=== PATIENT | male | born 1940 | race Caucasian/White ===

== ENCOUNTER 2021-05-06 04:16 | Emergency (ER) | payer MEDICARE, BC ==
--- NOTE | 2021-05-06 05:09 | EDM.PDOC ---
ED HPI GENERAL MEDICAL PROBLEM - General Chief Complaint: Chest Pain Stated Complaint: FAST HEART RATE Time Seen by Provider: 05/06/21 04:35 Source of Information: Reports: Patient, Family History Limitations: Reports: No Limitations - History of Present Illness INITIAL COMMENTS - FREE TEXT/NARRATIVE: 81-year-old male with a history of stent placements 10 years ago, recently had a cardiac evaluation after having some minimal chest discomfort while working out in the yard. They are setting up an angiogram in the near future, but tonight he got up to go to the bathroom and felt a little lightheaded and some palpitations which concerned him. He just did not feel right so he asked his to bring him in, he did not get short of breath or chest pain. On arrival to the emergency room he feels normal. Onset: Unknown/Unsure (Woke up with symptoms 1 hour ago) Duration: Minutes: (Symptoms lasted about 20 minutes) Associated Symptoms: Reports: Malaise, Weakness, Other (Lightheaded) - Related Data Allergies Allergy/AdvReac Type Severity Reaction Status Date / Time codeine Allergy Itching Verified 05/06/21 04:21 Home Meds: Home Meds Aspirin [Ecotrin EC] 1 tab PO DAILY 05/06/21 [History] Metoprolol Tartrate [Lopressor] 1 tab PO BID 05/06/21 [History] Rosuvastatin [Crestor] 1 tab PO DAILY 05/06/21 [History] Past Medical History HEENT History: Reports: Cataract Cardiovascular History: Reports: High Cholesterol, Hypertension, Stents Endocrine/Metabolic History: Reports: Other (See Below) Other Endocrine/Metabolic History: myasthenia gravis Oncologic (Cancer) History: Reports: Basal Cell Carcinoma - Infectious Disease History Infectious Disease History: Reports: Chicken Pox, Measles, Shingles - Past Surgical History HEENT Surgical History: Reports: Cataract Surgery GI Surgical History: Reports: Colonoscopy Musculoskeletal Surgical History: Reports: Hip Replacement Social & Family History - Family History Family Medical History: No Pertinent Family History - Tobacco Use Tobacco Use Status *Q: Never Tobacco User - Caffeine Use Caffeine Use: Reports: Coffee - Recreational Drug Use Recreational Drug Use: No ED ROS GENERAL - Review of Systems Review Of Systems: See Below Constitutional: Denies: Fever, Chills HEENT: Reports: No Symptoms Respiratory: Denies: Shortness of Breath Cardiovascular: Reports: Palpitations. Denies: Chest Pain GI/Abdominal: Denies: Nausea, Vomiting Neurological: Reports: Dizziness Psychiatric: Reports: No Symptoms ED EXAM, GENERAL - Physical Exam Exam: See Below Exam Limited By: No Limitations General Appearance: Alert, No Apparent Distress Eye Exam: Bilateral Eye: Normal Inspection Head: Atraumatic Respiratory/Chest: No Respiratory Distress, Lungs Clear Cardiovascular: Regular Rate, Rhythm, Systolic Murmur (Faint systolic murmur) GI/Abdominal: Soft, Non-Tender Extremities: Normal Inspection. No: Pedal Edema Neurological: Alert, Oriented Psychiatric: Normal Affect, Normal Mood Skin Exam: Warm, Dry #1 Interpretation EKG Date: 05/06/21 Rhythm: NSR QRS: LBBB ST-T: Normal Comparison: NA - No Prior EKG Course - Vital Signs Last Recorded V/S: Last Vital Signs Temp 97.9 F 05/06/21 04:29 Pulse 70 05/06/21 04:29 Resp 17 05/06/21 04:29 BP 174/76 H 05/06/21 04:29 Pulse Ox 95 05/06/21 04:29 - Re-Assessments/Exams Free Text/Narrative Re-Assessment/Exam: 05/06/21 05:20 Visited with the patient for 1/2-hour and he had no symptoms. He already has an angiogram set up in the near future, I do not think this needs to be pushed forward however I made a copy of his EKG to share with his [employer] travel counselor who just saw him 2 days ago and he can ask if he had a left bundle branch block at that time. If so they may want to move his angiogram closer. Departure - Departure Time of Disposition: 05:21 Disposition: Home, Self-Care 01 Clinical Impression: Palpitations - Discharge Information Referrals: Jorge Perry MD [Primary Care Provider] - Forms: ED Department Discharge Care Plan Goals: Recheck with cardiology as discussed. Return anytime if you redevelop symptoms like chest pain and they are persistent. Sepsis Event Note (ED) - Evaluation Sepsis Screening Result: No Definite Risk - Focused Exam Vital Signs: Vital Signs Temp Pulse Resp BP Pulse Ox 05/06/21 04:29 97.9 F 70 17 174/76 H 95
== END 2021-05-06 05:31 | disposition home or self-care (01) ==
LOC: JP.ED 04:16
DX: R00.2 Palpitations (principal); I44.7 Left bundle-branch block, unspecified; E78.00 Pure hypercholesterolemia, unspecified; I10 Essential (primary) hypertension; Z88.5 Allergy status to narcotic agent; Z79.82 Long term (current) use of aspirin; Z79.899 Other long term (current) drug therapy
CPT/HCPCS: 99284-25